=== PATIENT | male | born 1980 ===

== ENCOUNTER 2023-07-19 16:16 | Outpatient (CLI) | payer SELFPAY ==
[2023-07-19 17:08] LABS: Hemoglobin A1C* 12.6 % (0-5.6)
[2023-07-19 22:25] LABS: Vitamin D 25 Hydroxy* 21 ng/mL (30-80)
== END 2023-07-19 16:17 | disposition home or self-care (01) ==
PROVIDERS: Visit Provider Family Medicine
DX: E11.9 Type 2 diabetes mellitus without complications (principal); G62.9 Polyneuropathy, unspecified; R53.83 Other fatigue; R00.0 Tachycardia, unspecified; K21.9 Gastro-esophageal reflux disease without esophagitis
CPT/HCPCS: 80061; 82306; 82607; 83036; 84443

== ENCOUNTER 2023-09-17 12:04 | Outpatient (CLI) | payer OTHER, SELFPAY | END 2023-09-17 12:05 | disposition home or self-care (01) | PROVIDERS: PCP Family Medicine; Visit Provider Family Medicine | DX: Z00.00 Encounter for general adult medical examination without abnormal findings (principal); E11.9 Type 2 diabetes mellitus without complications; R79.89 Other specified abnormal findings of blood chemistry; R53.83 Other fatigue | CPT/HCPCS: 80076; 82043; 82570 ==

== ENCOUNTER 2023-12-17 16:19 | Outpatient (CLI) | payer OTHER, SELFPAY | END 2023-12-17 16:20 | disposition home or self-care (01) | LOC: NFLDREF 01-03 02:48 | PROVIDERS: PCP Family Medicine; Referring Provider Family Medicine; Visit Provider Family Medicine | DX: E11.9 Type 2 diabetes mellitus without complications (principal); E78.00 Pure hypercholesterolemia, unspecified | CPT/HCPCS: 80053; 80061 ==

== ENCOUNTER 2024-06-05 08:20 | Outpatient (CLI) | payer OTHER, SELFPAY | END 2024-06-05 08:21 | disposition home or self-care (01) | LOC: NFLDREF 06-07 04:48 | PROVIDERS: PCP Family Medicine; Referring Provider Family Medicine; Visit Provider Family Medicine | DX: R79.89 Other specified abnormal findings of blood chemistry (principal); E11.9 Type 2 diabetes mellitus without complications; Z79.84 Long term (current) use of oral hypoglycemic drugs | CPT/HCPCS: 80053; 82043; 82306; 82570 ==

== ENCOUNTER 2024-12-11 08:32 | Outpatient (CLI) | payer OTHER, SELFPAY | END 2024-12-11 08:33 | disposition home or self-care (01) | LOC: NFLDREF 12-15 06:52 | PROVIDERS: PCP Family Medicine; Referring Provider Family Medicine; Visit Provider Family Medicine | DX: R79.89 Other specified abnormal findings of blood chemistry (principal); E11.9 Type 2 diabetes mellitus without complications; R53.83 Other fatigue; K21.9 Gastro-esophageal reflux disease without esophagitis; E55.9 Vitamin D deficiency, unspecified; Z13.6 Encounter for screening for cardiovascular disorders | CPT/HCPCS: 80053; 80061; 82306; 83036 ==

== ENCOUNTER 2025-06-07 08:13 | Outpatient (CLI) | payer OTHER, SELFPAY | END 2025-06-07 08:14 | disposition home or self-care (01) | LOC: NFLDREF 06-09 15:34 | PROVIDERS: PCP Family Medicine; Referring Provider Family Medicine; Visit Provider Family Medicine | DX: E11.9 Type 2 diabetes mellitus without complications (principal); E78.00 Pure hypercholesterolemia, unspecified; R79.89 Other specified abnormal findings of blood chemistry; R53.83 Other fatigue | CPT/HCPCS: 80061 ==